=== PATIENT | male | born 1985 | race Asian ===

== ENCOUNTER 2018-08-16 08:54 | Emergency (ER) | payer OTHER ==
[~2018-08-16] VITALS: Ht 165.1 cm; Wt 60.0 kg
[2018-08-16 09:50] LABS: COLLECTION METHOD CLEAN CATCH
[2018-08-16 09:58] LABS: PH 7 (5-8); SQUAMOUS EPITHELIAL None Seen /hpf; URINE APPEARANCE Clear; URINE BACTERIA None Seen /hpf; URINE BILIRUBIN Negative (NEGATIVE); URINE BLOOD Negative (NEGATIVE); URINE COLOR Yellow; URINE GLUCOSE Negative (NEGATIVE); URINE KETONE Negative (NEGATIVE); URINE LEUKOCYTE ESTERASE Negative (NEGATIVE); URINE NITRATE Negative (NEGATIVE); URINE PROTEIN(semi-quant) Negative (NEGATIVE); URINE RBC 0-2 /hpf; URINE UROBILINOGEN Negative (NEGATIVE)
[2018-08-16 10:07] LABS: BASO % 0.4 % (0.0-2.0); EOS # 0.1 (0.0-0.7); EOS % 1.6 % (0-4.0); GRAN # 5.8 (1.4-6.5); GRAN % 69.6 % (42.2-75.2); HEMATOCRIT 40.1 % (42.0-52.0); HEMOGLOBIN 13.4 g/dl (13.5-18.0); LYMPH # 1.6 (1.2-3.4); LYMPH % 19.6 % (20.0-51.0); MEAN CELL VOLUME 84 fl (80.0-100.0); MEAN CORPUSCULAR HEMOGLOBIN 28 pg (27.0-31.0); MEAN CORPUSCULAR HGB CONC 33 g/dl (33.0-37.0); MEAN PLATELET VOLUME 10.5 fl (7.4-10.4); MONO # 0.7 (0.1-0.6); MONO % 8.4 % (1.7-9.3); PLATELET COUNT 308 K/mm3 (130-400); REDCELL DISTRIBUTION WIDTH-CV 11.6 % (11.5-14.5)
[2018-08-16 10:19] LABS: ALBUMIN 3.9 gm/dL (3.5-5.0); BILIRUBIN,TOTAL 0.4 mg/dL (0.0-1.0); C-REACTIVE PROTEIN 1.6 mg/dL (0.0-0.9); CALCIUM 9.4 mg/dL (8.4-10.2); POTASSIUM 4.2 mmol/L (3.4-5.0); TOTAL PROTEIN 7.8 gm/dL (6.4-8.2)
[2018-08-16 11:47] VITALS: BP 110/69; PULSE 79; TEMP 99.8
== END 2018-08-16 11:47 | disposition home or self-care (01) ==
LOC: COL.ER 08:54
PROVIDERS: Physician Assistant
DX: R53.81 Other malaise (principal); R61 Generalized hyperhidrosis

== ENCOUNTER → 2018-08-26 | Outpatient (CLI) | payer OTHER | LOC: COL.RAD 14:50 | DX: R59.0 Localized enlarged lymph nodes (principal); R61 Generalized hyperhidrosis; R50.9 Fever, unspecified; R91.1 Solitary pulmonary nodule | CPT/HCPCS: Q9967 ==

== ENCOUNTER 2018-09-04 11:01 | Emergency (ER) | payer OTHER ==
[~2018-09-04] VITALS: Ht 165.1 cm; Wt 60.0 kg
[2018-09-04 11:07] VITALS: TEMP 96.7
[2018-09-04 12:48] VITALS: BP 117/70; PULSE 76
== END 2018-09-04 12:49 | disposition home or self-care (01) ==
LOC: COL.ER 11:01
DX: R91.8 Other nonspecific abnormal finding of lung field (principal); R06.6 Hiccough; R06.02 Shortness of breath
CPT/HCPCS: J2930

== ENCOUNTER 2018-10-18 10:12 | Emergency (ER) | payer OTHER ==
[~2018-10-18] VITALS: Ht 165.1 cm; Wt 59.1 kg
[2018-10-18 10:21] VITALS: TEMP 99.6
[2018-10-18] MEDS ORDERED: NOXAFILTAB (11:52)
[2018-10-18 12:55] LABS: BASO # 0.1 (0.0-0.2); BASO % 0.8 % (0.0-2.0); EOS # 0.5 (0.0-0.7); EOS % 6.8 % (0-4.0); GRAN # 4.7 (1.4-6.5); GRAN % 63.1 % (42.2-75.2); HEMOGLOBIN 11.9 g/dl (13.5-18.0); LYMPH # 1.6 (1.2-3.4); LYMPH % 21.8 % (20.0-51.0); MEAN CELL VOLUME 84 fl (80.0-100.0); MEAN CORPUSCULAR HEMOGLOBIN 27 pg (27.0-31.0); MEAN CORPUSCULAR HGB CONC 32 g/dl (33.0-37.0); MEAN PLATELET VOLUME 12.2 fl (7.4-10.4); MONO # 0.5 (0.1-0.6); PLATELET COUNT 360 K/mm3 (130-400); RED BLOOD COUNT 4.38 M/mm3 (4.20-5.60); REDCELL DISTRIBUTION WIDTH-CV 12.8 % (11.5-14.5)
[2018-10-18 13:02] LABS: HEMATOCRIT 36.7 % (42.0-52.0)
[2018-10-18 13:08] LABS: ALBUMIN 3.9 gm/dL (3.5-5.0); BILIRUBIN,TOTAL 0.7 mg/dL (0.0-1.0); C-REACTIVE PROTEIN 3.1 mg/dL (0.0-0.9); CALCIUM 9.9 mg/dL (8.4-10.2); CREATININE, serum 0.93 (0.66-1.25); POTASSIUM 4.2 mmol/L (3.4-5.0); TOTAL PROTEIN 8.9 gm/dL (6.4-8.2)
[2018-10-18 13:17] LABS: COLLECTION METHOD CLEAN CATCH
[2018-10-18 13:33] LABS: PH 7 (5-8); SQUAMOUS EPITHELIAL None Seen /hpf; URINE APPEARANCE Clear; URINE BACTERIA None Seen /hpf; URINE BILIRUBIN Negative (NEGATIVE); URINE BLOOD Negative (NEGATIVE); URINE COLOR Straw; URINE GLUCOSE Negative (NEGATIVE); URINE KETONE Negative (NEGATIVE); URINE LEUKOCYTE ESTERASE Negative (NEGATIVE); URINE NITRATE Negative (NEGATIVE); URINE PROTEIN(semi-quant) Negative (NEGATIVE); URINE RBC 0-2 /hpf; URINE UROBILINOGEN Negative (NEGATIVE)
[2018-10-18] MEDS ORDERED: ULTRAM 50MG TAB50 MG PO (15:40)
[2018-10-18 15:44] VITALS: BP 122/86; PULSE 92
== END 2018-10-18 15:54 | disposition home or self-care (01) ==
LOC: COL.ER 10:12
PROVIDERS: Emergency Medicine
DX: R09.1 Pleurisy (principal); B39.2 Pulmonary histoplasmosis capsulati, unspecified
CPT/HCPCS: J7030